=== PATIENT | male | born 1995 | race African-American/Black ===

== ENCOUNTER 2017-11-20 23:35 | Emergency (ER) | payer OTHER ==
[2017-11-21 00:40] LABS: ANION GAP 6 MEQ/L (8-16); BLOOD UREA NITROGEN 15 MG/DL (7-18); CALCIUM LEVEL 8.6 MG/DL (8.5-10.1); CARBON DIOXIDE LEVEL 29 MEQ/L (21-32); CHLORIDE LEVEL 105 MEQ/L (98-107); CREATININE FOR GFR 1.03 MG/DL (0.70-1.30); ETHYL ALCOHOL (ETHANOL) < 0.003 % (0.000-0.010); GLUCOSE, FASTING 107 MG/DL (70-100); SODIUM LEVEL 140 MEQ/L (136-145)
[2017-11-21 01:00] LABS: AMPHETAMINES LEVEL URINE NEGATIVE (NEGATIVE); BARBITURATES URINE NEGATIVE (NEGATIVE); BENZODIAZEPINES URINE NEGATIVE (NEGATIVE); CANNABINOIDS URINE POSITIVE (NEGATIVE); COCAINE METABOLITE URINE NEGATIVE (NEGATIVE); METHADONE URINE NEGATIVE (NEGATIVE); OPIATES URINE NEGATIVE (NEGATIVE); PHENCYCLIDINE URINE NEGATIVE (NEGATIVE)
== END 2017-11-21 01:30 | disposition home or self-care (01) ==
LOC: M ED 23:35
DX: F12.10 Cannabis abuse, uncomplicated (principal); F17.200 Nicotine dependence, unspecified, uncomplicated
CPT/HCPCS: 93005

== ENCOUNTER 2018-10-15 17:43 | Emergency (ER) | payer OTHER, SELFPAY ==
[~2018-10-15] VITALS: Ht 170.2 cm; Wt 81.8 kg
[2018-10-15] MEDS ORDERED: AMOXICILLIN 500 MG CAP PO ONE (18:30)
[2018-10-15] MEDS ORDERED: FLON1SPR NARES (18:37)
[2018-10-15] MEDS ORDERED: AMOX500C PO (18:37)
[2018-10-15 19:09] VITALS: BP 167/95
== END 2018-10-15 19:21 | disposition home or self-care (01) ==
LOC: M ED 17:43
DX: J02.0 Streptococcal pharyngitis (principal); R55 Syncope and collapse

== ENCOUNTER 2022-05-24 14:08 | Emergency (ER) | payer SELFPAY ==
[~2022-05-24] VITALS: Ht 167.6 cm; Wt 89.3 kg
[~2022-05-24 14:08] MED LIST: AMOX500C PO; FLON1SPR NARES
[2022-05-24 18:28] VITALS: BP 129/79
== END 2022-05-24 18:32 | disposition home or self-care (01) ==
LOC: M ED 14:08
DX: S93.401A Sprain of unspecified ligament of right ankle, initial encounter (principal); X50.9XXA Other and unspecified overexertion or strenuous movements or postures, initial encounter; Y92.89 Other specified places as the place of occurrence of the external cause; Y93.61 Activity, american tackle football